=== PATIENT | male | born 1995 | race Two or more races ===

== ENCOUNTER 2019-12-26 21:38 | Emergency (ER) | payer OTHER ==
[2019-12-26 22:07] VITALS: BP 117/63
[2019-12-26] MEDS ORDERED: LORazepam 0.5 MG TAB PO ONE (22:15)
[2019-12-26 22:16] LABS: Basophils # (auto) 0 10 ^3/uL (0-0.2); Eosinophils # (auto) 0.1 10 ^3/uL (0-0.8); Hemoglobin 12.1 g/dL (13.5-17.5); Lymphocytes # (auto) 2.1 10 ^3/uL (0.4-5.4); Monocytes # (auto) 0.3 10 ^3/uL (0-1.3); White Blood Cell 7.2 10^3/uL (4.4-10.8)
[2019-12-26 22:18] LABS: Basophils % (auto) 0.6 % (0.0-2.0); Hematocrit 36.6 % (41.0-53.0); Lymphocytes % (auto) 29.2 % (10.0-50.0); Mean Corpuscular Volume 63.6 fL (80.0-100.0); Monocytes % (auto) 4.1 % (0.0-12.0); Neutrophils # (auto) 4.7 10 ^3/uL (1.6-8.6); Neutrophils % (auto) 65.1 % (37.0-80.0); Nucleated Red Blood Cells % 0.3 %; Platelet Count (auto) 309 10^3/uL (140-450); Red Blood Cells 5.76 10^6/uL (4.5-5.90); Red Cell Distribution Width 15.8 % (11.8-14.3)
[2019-12-26 22:32] LABS: INR 0.97 (0.9-1.15); Partial Thromboplastin Time 22.8 sec (23.0-31.2)
[2019-12-26 22:34] LABS: Alanine Aminotransferase 41 U/L (16-61); Albumin 4.4 g/dL (3.4-5.0); Anion Gap 9 (5-15); BUN/Creatinine Ratio 13.2; Blood Urea Nitrogen 17 mg/dL (7-18); Calcium 8.8 mg/dL (8.5-10.1); Carbon Dioxide 25 mmol/L (21-32); Chloride 105 mmol/L (98-107); GFR African American 90 mL/min; GFR Non-African American 74 mL/min; Glucose 110 mg/dL (74-106); Magnesium 2.2 mg/dL (1.6-2.6); Potassium 3.5 mmol/L (3.5-5.1); Sodium 139 mmol/L (136-145)
[2019-12-26 22:39] LABS: Alkaline Phosphatase 48 U/L (45-117); Aspartate Aminotransferase 19 U/L (15-37); Bilirubin, Total 2.5 mg/dL (0.2-1.0); Total Protein 7.4 g/dL (6.4-8.2)
== END 2019-12-26 23:50 | disposition home or self-care (01) ==
LOC: ER 21:40
DX: F41.9 Anxiety disorder, unspecified (principal); F17.210 Nicotine dependence, cigarettes, uncomplicated
CPT/HCPCS: 36415; 71045; 80053; 83735; 83880; 84484; 85025; 85379; 85610; 85730; 93005